=== PATIENT | female | born 1990 | race Caucasian/White ===

== ENCOUNTER 2022-08-13 15:46 | Emergency (ER) | payer MEDICAID ==
[~2022-08-13] VITALS: Ht 144.8 cm; Wt 65.8 kg
[2022-08-13 15:57] VITALS: BP 129/72
--- NOTE | 2022-08-13 16:00 | NUR ---
33/F WALKED IN C/O EPIGASTRIC PAIN ACCOMPANIED BY NAUSEA AND 1 EPISODE OF DIARRHEA ONSET 5 DAYS. DENIES TRAUMA TO ABD. PMH: DENIES
[2022-08-13] MEDS ORDERED: FAMOTIDINE 20 MG TAB PO ONE (16:30)
[2022-08-13] MEDS ORDERED: ALUMINUM HYD/MAG/SIMETHICONE 30 ML UDC PO ONE (16:30)
[2022-08-13] MEDS ORDERED: DICYCLOMINE HCL LIQUID 10 MG/5 ML UDC PO ONE (16:30)
[2022-08-13 16:49] LABS: BASOPHILS % (AUTO) 0.3 % (0.0-2.0); EOSINOPHILS # (AUTO) 1.4 K/uL (0-0.4); EOSINOPHILS % (AUTO) 12.3 % (0.0-4.0); HEMATOCRIT 42.2 % (36-48); HEMOGLOBIN 13.9 g/dL (12.0-16.0); LYMPHOCYTES # (AUTO) 2.8 K/uL (2.5-16.5); LYMPHOCYTES % (AUTO) 25.6 % (20.5-51.1); MEAN CORPUSCULAR HEMOGLOBIN 29 pg (27-31); MEAN CORPUSCULAR HGB CONC 33 g/dL (33-37); MONOCYTES # (AUTO) 0.5 K/uL (0.8-1.0); MONOCYTES % (AUTO) 4.9 % (1.7-9.3); NEUTROPHILS # (AUTO) 6.3 K/uL (1.8-7.7); NEUTROPHILS % (AUTO) 56.9 % (42.2-75.2); PLATELET COUNT (AUTO) 344 K/uL (140-450); RED BLOOD CELL COUNT(AUTO) 4.75 MIL/uL (4.20-5.40)
[2022-08-13 17:28] LABS: ANION GAP 12.4 (8-16); POTASSIUM 4.4 mmol/L (3.5-5.1)
[2022-08-13 17:29] LABS: CREATININE 0.8 mg/dL (0.6-1.3)
[2022-08-13 17:31] LABS: ALBUMIN 4.5 g/dL (3.4-5.0)
[2022-08-13 18:08] LABS: APPEARANCE,URINE CLEAR (CLEAR); BILIRUBIN,URINE NEGATIVE (NEGATIVE); BLOOD, URINE TRACE-I (NEGATIVE); COLOR,URINE YELLOW (YELLOW); LEUKOCYTE ESTERASE ,URINE NEGATIVE (NEGATIVE); NITRITE, URINE NEGATIVE (NEGATIVE); UGLUCOSE NEGATIVE (NEGATIVE)
[2022-08-13 18:31] LABS: WBC,URINE 0-5 /HPF (0-5)
[2022-08-13] MEDS ORDERED: ACET-10509 PO (19:25)
[2022-08-13] MEDS ORDERED: FAMO-90 PO (19:25)
[2022-08-13] MEDS ORDERED: ONDA-188 PO (19:25)
[2022-08-13] MEDS ORDERED: BEN10 PO (19:25)
[2022-08-13 19:29] VITALS: BP 126/75
== END 2022-08-13 19:29 | disposition home or self-care (01) ==
LOC: MED 15:46 → EDBD 15:46 → MED 19:29
DX: R10.13 Epigastric pain (principal); R11.2 Nausea with vomiting, unspecified
CPT/HCPCS: 36415; 80053; 81001; 81025; 83690; 85025; 99284

== ENCOUNTER 2022-08-26 14:47 | Emergency (ER) | payer MEDICAID ==
[~2022-08-26] VITALS: Ht 154.9 cm; Wt 53.1 kg
[~2022-08-26 14:47] MED LIST: ACET-10509 PO; BEN10 PO; FAMO-90 PO; ONDA-188 PO
[2022-08-26 14:58] VITALS: BP 131/82
--- NOTE | 2022-08-26 15:00 | NUR ---
32 Y/O FEMALE BIB SELF C/O EPIGASTRIC PAIN X15 DAYS, DENIES ANY VOMITING OR DIARRHEA, SLIGHT NAUSEA, WAS SEEN IN THE ED ON 08/13/22 AND GIVEN RX OF BENTYL , PEPCID AND TYLENOL WITH MINIMAL RELIEF NKA PMH: DENIES
[2022-08-26] MEDS ORDERED: DICYCLOMINE HCL LIQUID 20 MG, ALUMINUM HYD/MAG/SIMETHICONE 30 ML, LIDOCAINE VISCOUS 2% ... PO ONE ×3 (15:30)
[2022-08-26] MEDS ORDERED: KETOROLAC 30 MG/ML VIAL IM ONE (15:30)
[2022-08-26 16:17] LABS: HEMATOCRIT 42.7 % (36-48); HEMOGLOBIN 14.1 g/dL (12.0-16.0); MEAN CORPUSCULAR HEMOGLOBIN 29 pg (27-31); MEAN CORPUSCULAR HGB CONC 33 g/dL (33-37); MEAN CORPUSCULAR VOLUME 87.8 fL (80-94); PLATELET COUNT (AUTO) 304 K/uL (140-450); RED BLOOD CELL COUNT(AUTO) 4.86 MIL/uL (4.20-5.40); RED CELL DISTRIBUTION WIDTH 12.9 % (11.6-13.7); WHITE BLOOD COUNT (AUTO) 17.8 K/uL (4.8-10.8)
[2022-08-26 16:33] LABS: ALBUMIN 4.2 g/dL (3.4-5.0); CREATININE 0.7 mg/dL (0.6-1.3)
[2022-08-26] MEDS ORDERED: KETOROLAC 30 MG/ML VIAL ONE (16:42)
[2022-08-26] MEDS ORDERED: ALUMINUM HYD/MAG/SIMETHICONE 30 ML UDC ONE (16:43)
[2022-08-26 16:47] LABS: TOTAL BILIRUBIN 0.2 mg/dL (0.0-1.0)
[2022-08-26 17:17] LABS: BASOPHILS % (MANUAL) 2 % (0-2); EOSINOPHILS % (MANUAL) 31 % (0-4); LYMPHOCYTES % (MANUAL) 21 % (20-46); MONOCYTES % (MANUAL) 3 % (5-12)
[2022-08-26 17:32] LABS: APPEARANCE,URINE CLEAR (CLEAR); BILIRUBIN,URINE NEGATIVE (NEGATIVE); BLOOD, URINE TRACE-I (NEGATIVE); COLOR,URINE YELLOW (YELLOW); LEUKOCYTE ESTERASE ,URINE NEGATIVE (NEGATIVE); NITRITE, URINE NEGATIVE (NEGATIVE); UGLUCOSE NEGATIVE (NEGATIVE)
[2022-08-26 17:42] LABS: RBC,URINE 0-5 /HPF (0-5); TRICHOMONAS,URINE None Seen /HPF (None Seen); WBC,URINE 0-5 /HPF (0-5); YEAST,URINE None Seen /HPF (None Seen)
[2022-08-26] MEDS ORDERED: ONDA-188 PO (17:46)
[2022-08-26] MEDS ORDERED: OMEP20EC11 PO (17:46)
[2022-08-26] MEDS ORDERED: MAG355OR2 PO (17:46)
--- NOTE | 2022-08-26 18:12 | NUR ---
Patient discharged with v/s stable. Written and verbal after care instructions ABOUT GASTRITIS given and explained. Patient alert, oriented and verbalized understanding of instructions. Ambulatory with steady gait. All questions addressed prior to discharge. ID band removed. Patient advised to follow up with PMD. Rx of MAALOX, OMEPRAZOLE, ZOFRAN ODT given. Patient educated on indication of medication including possible reaction and side effects. Opportunity to ask questions provided and answered.
== END 2022-08-26 18:12 | disposition home or self-care (01) ==
LOC: MED 14:47
DX: K29.70 Gastritis, unspecified, without bleeding (principal); Z79.899 Other long term (current) drug therapy
CPT/HCPCS: 36415; 76705; 80053; 81001; 81025; 83690; 85025; 96372; 99285; J1885; Q0092

== ENCOUNTER 2023-04-21 12:30 | Emergency (ER) | payer MEDICAID ==
[~2023-04-21] VITALS: Ht 150.6 cm; Wt 53.5 kg
[~2023-04-21 12:30] MED LIST changes: +MAG355OR2 PO; +OMEP20EC11 PO
[2023-04-21 12:41] VITALS: BP 118/70; PULSE 67; RESP 18; TEMP 97.8; O2SAT 99
[2023-04-21 13:06] LABS: APPEARANCE,URINE CLEAR (CLEAR); BILIRUBIN,URINE NEGATIVE (NEGATIVE); BLOOD, URINE 1+ (NEGATIVE); COLOR,URINE YELLOW (YELLOW); LEUKOCYTE ESTERASE ,URINE NEGATIVE (NEGATIVE); NITRITE, URINE NEGATIVE (NEGATIVE); PH,URINE 6.5 (5.0-9.0); PROTEIN,URINE NEGATIVE (NEGATIVE); UGLUCOSE NEGATIVE (NEGATIVE); UROBILINOGEN,URINE 0.2 EU/dL (0.2 - 1)
[2023-04-21 13:27] LABS: BACTERIA,URINE 0-2 /HPF (None Seen); RBC,URINE 0-5 /HPF (0-5); WBC,URINE 0-5 /HPF (0-5)
[2023-04-21] MEDS ORDERED: KETOROLAC 30 MG/ML VIAL IM ONE (13:55)
[2023-04-21] MEDS ORDERED: LID5T TP (14:53)
[2023-04-21] MEDS ORDERED: NAPR-1704 PO (14:53)
[2023-04-21 15:11] VITALS: BP 118/70; PULSE 67; RESP 18; TEMP 97.8; O2SAT 99
== END 2023-04-21 15:05 | disposition home or self-care (01) ==
LOC: MED 12:30
DX: S39.012A Strain of muscle, fascia and tendon of lower back, initial encounter (principal); M51.37 Other intervertebral disc degeneration, lumbosacral region; Z79.899 Other long term (current) drug therapy; X58.XXXA Exposure to other specified factors, initial encounter; Y93.89 Activity, other specified; Y92.89 Other specified places as the place of occurrence of the external cause; Y99.8 Other external cause status
CPT/HCPCS: 72072; 72110; 81001; 81025; 96372; 99284; J1885